=== PATIENT | male | born 1985 | race Caucasian/White ===

== ENCOUNTER 2021-08-10 12:48 | Emergency (ER) | payer MEDICAID ==
[~2021-08-10] VITALS: Ht 157.5 cm; Wt 49.9 kg
[2021-08-10 12:50] VITALS: BP_SYST 111
[2021-08-10] MEDS ORDERED: GASTROGRAFIN 120 ML GT ONE (13:30)
[2021-08-10] MEDS ORDERED: GASTROGRAFIN 120 ML ONE (13:34)
[2021-08-10 13:43] LABS: BASOPHILS # (AUTO) 0.1 K/uL (0.0-0.2); BASOPHILS % (AUTO) 0.8 % (0.0-2.0); EOSINOPHILS # (AUTO) 0.1 K/uL (0.0-0.4); EOSINOPHILS % (AUTO) 1.3 % (0.0-4.0); HEMATOCRIT 45.9 % (36-54); HEMOGLOBIN 15.4 g/dL (14.0-18.0); LYMPHOCYTES # (AUTO) 1.5 K/uL (1.0-5.5); MEAN CORPUSCULAR HEMOGLOBIN 30 pg (27-31); MEAN CORPUSCULAR HGB CONC 34 % (32-36); MEAN CORPUSCULAR VOLUME 91 fL (79.0-98.0); MONOCYTES # (AUTO) 0.6 K/uL (0.0-1.0); MONOCYTES % (AUTO) 8.4 % (1.7-9.3); NEUTROPHILS # (AUTO) 4.5 K/uL (1.8-7.7); NEUTROPHILS % (AUTO) 67.5 % (40.0-70.0); PLATELET COUNT (AUTO) 138 K/uL (130-430); RED BLOOD CELL COUNT(AUTO) 5.06 MIL/uL (4.2-6.2); WHITE BLOOD COUNT (AUTO) 6.7 K/uL (4.8-10.8)
[2021-08-10 13:58] LABS: CALCIUM 9.5 mg/dL (8.4-11.0); CREATININE 0.74 mg/dL (0.55-1.30); POTASSIUM 3.9 mmol/L (3.5-5.1)
[2021-08-10 14:12] LABS: ALBUMIN 3.7 g/dL (3.4-4.8); TOTAL BILIRUBIN 0.3 mg/dL (0.0-1.0)
[2021-08-10 14:16] LABS: PHENYTOIN (DILANTIN) 0.9 ug/mL (10.0-20.0)
[2021-08-10 14:31] LABS: CARBAMAZEPINE (TEGRETOL) < 0 ug/mL (4-12); VALPROIC ACID < 3 ug/mL (50-100)
[2021-08-10 15:30] VITALS: BP_SYST 110
== END 2021-08-10 19:00 | disposition home or self-care (01) ==
LOC: SED 12:48
DX: K94.23 Gastrostomy malfunction (principal); I10 Essential (primary) hypertension; K21.9 Gastro-esophageal reflux disease without esophagitis
CPT/HCPCS: 36415; 43762; 74240; 80053; 80156; 80164; 80185; 83690; 85025; 99284; Q9963

== ENCOUNTER 2023-12-08 22:47 | Inpatient (IN) | payer MEDICAID, OTHER ==
[~2023-12-08] VITALS: Ht 152.4 cm; Wt 45.4 kg
[2023-12-08 22:53] VITALS: BP_SYST 127; PULSE 130; RESP 25; TEMP 98.8; O2SAT 96
[2023-12-08 23:47] LABS: BASOPHILS % (AUTO) 0.4 % (0.0-2.0); EOSINOPHILS % (AUTO) 0.2 % (0.0-4.0); HEMATOCRIT 38.9 % (36-54); HEMOGLOBIN 13.5 g/dL (14.0-18.0); LYMPHOCYTES # (AUTO) 0.9 K/uL (1.0-5.5); LYMPHOCYTES % (AUTO) 13.5 % (20.5-51.5); MEAN CORPUSCULAR HEMOGLOBIN 30 pg (27-31); MEAN CORPUSCULAR HGB CONC 35 % (32-36); MEAN CORPUSCULAR VOLUME 87 fL (79.0-98.0); MONOCYTES # (AUTO) 0.7 K/uL (0.0-1.0); MONOCYTES % (AUTO) 10.5 % (1.7-9.3); NEUTROPHILS # (AUTO) 5.2 K/uL (1.8-7.7); NEUTROPHILS % (AUTO) 75.4 % (40.0-70.0); PLATELET COUNT (AUTO) 135 K/uL (130-430); RED BLOOD CELL COUNT(AUTO) 4.48 MIL/uL (4.2-6.2); RED CELL DISTRIBUTION WIDTH 15.1 % (9.0-15.0); WHITE BLOOD COUNT (AUTO) 6.9 K/uL (4.8-10.8)
[2023-12-09] VITALS (9 sets, daily range): BP systolic 108–153; PULSE 78–139; RESP 14–18; TEMP 97.1–99.6; O2SAT 94–98
[2023-12-09 00:03] LABS: ALANINE AMINOTRANSFERASE 27 U/L (12-78); ALBUMIN 3.7 g/dL (3.4-4.8); ANION GAP 9 (5-15); ASPARTATE AMINOTRANSFERASE 20 U/L (10-37); CALCIUM 9.1 mg/dL (8.4-11.0); CARBON DIOXIDE 28 mmol/L (23-29); CHLORIDE 106 mmol/L (98-107); CREATININE 0.95 mg/dL (0.55-1.30); GFR AFRICAN AMERICAN 114 mL/min (>90); GFR NON AFRICAN-AMERICAN 94 mL/min (>90); GLUCOSE 117 mg/dL (74-106); POTASSIUM 3.7 mmol/L (3.5-5.1); SODIUM SERUM 143 mmol/L (136-145); TOTAL BILIRUBIN 0.5 mg/dL (0.0-1.0); TOTAL PROTEIN, SERUM 7.9 g/dL (6.4-8.3); UREA NITROGEN, BLOOD 22 mg/dL (8-21)
[2023-12-09 00:05] LABS: BILIRUBIN,DIRECT 0.1 mg/dL (0.0-0.3)
[2023-12-09 00:15] LABS: INR 1.1 (0.80-1.20); PROTHROMBIN TIME 11.3 SECS (9.5-12.5)
[2023-12-09] MEDS ORDERED: VANCOMYCIN HCL 1000 MG/VIAL IV ONE (00:46)
[2023-12-09] MEDS ORDERED: CEFEPIME 1 GM/VIAL (MAXIPIME) ONE (00:47)
[2023-12-09] MEDS: CEFEPIME 1 GM in D5W 50 ML IV ONE (00:51)
[2023-12-09] MEDS ORDERED: AMIT25TA9 PO (01:18)
[2023-12-09] MEDS ORDERED: ALBU2.5V7 HHN (01:18)
[2023-12-09] MEDS ORDERED: METO5SOL22 PO (01:18)
[2023-12-09] MEDS ORDERED: OMEP20CA15 PO (01:18)
[2023-12-09] MEDS ORDERED: BACL20TA PO (01:18)
[2023-12-09] MEDS: NACL 0.9% 2,000 ML IV ONE (01:36)
[2023-12-09] MEDS: VANCOMYCIN HCL 1,000 MG in NS 250 ML IV ONE (01:36)
[2023-12-09 02:38] LABS: CLARITY/URINE CLOUDY (CLEAR); COLOR,URINE YELLOW (YELLOW); PH,URINE 8.5 (5.0-8.0)
[2023-12-09 02:39] LABS: BILIRUBIN,URINE NEGATIVE (NEGATIVE); BLOOD, URINE NEGATIVE (NEGATIVE); GLUCOSE,URINE NEGATIVE (NEGATIVE); KETONES,URINE 1+ (NEGATIVE); LEUKOCYTE ESTERASE ,URINE NEGATIVE (NEGATIVE); NITRITE, URINE NEGATIVE (NEGATIVE); PROTEIN URINE 1+ (NEGATIVE); UROBILINOGEN,URINE 0.2 (0.2-1.0)
[2023-12-09 02:40] LABS: BACTERIA,URINE None Seen /HPF (None Seen); RBC,URINE 0-3 /HPF (0-3); WBC,URINE 0-3 /HPF (0-3)
[2023-12-09 02:45] LABS: URINE AMORPHOUS PHOSPHATES 3+ /HPF (None Seen)
[2023-12-09] MEDS: ACETAMINOPHEN 650 MG/20.3 ML UDC PO ONE (04:02)
[2023-12-09] MEDS: ONDANSETRON HCL 4 MG/2 ML VIAL IVP ONE (04:54)
[2023-12-09] MEDS ORDERED: ACETAMINOPHEN 500 MG TABLET GT PRN (07:00)
[2023-12-09] MEDS ORDERED: NACL 0.9% 1,000 ML IV ONE (07:00)
[2023-12-09] MEDS ORDERED: OMEPRAZOLE Non-Formulary 20 MG CAPSULE.DR PO SCH (11:00)
[2023-12-09] MEDS ORDERED: LR 1,000 ML IV SCH (11:00)
[2023-12-09] MEDS ORDERED: METOCLOPRAMIDE HCL 10 MG/10 ML UDC GT PRN (11:00)
[2023-12-09] MEDS: ONDANSETRON HCL 4 MG/2 ML VIAL IVP PRN (11:32)
[2023-12-09] MEDS: ALBUTEROL SULFATE 0.083% 2.5 MG/3 ML VIAL.NEB INH ONE (11:49)
[2023-12-09] MEDS: D5LR 1,000 ML IV SCH (13:15)
[2023-12-09] MEDS: BACLOFEN 10 MG TABLET PO ONE (13:15)
[2023-12-09] MEDS: PANTOPRAZOLE SODIUM 40 MG/VIAL (PROTONIX) IVP ONE (13:27)
[2023-12-09] MEDS ORDERED: metroNIDAZOLE 500 mg/NS 100 ML IV SCH (14:00)
[2023-12-09] MEDS: metroNIDAZOLE 500 MG TABLET GT SCH (14:34)
[2023-12-09] MEDS: ALBUTEROL SULFATE 0.083% 2.5 MG/3 ML VIAL.NEB INH SCH (15:41)
[2023-12-09] MEDS: AMITRIPTYLINE HCL 25 MG TABLET (ELAVIL) GT SCH (17:12)
[2023-12-09] MEDS: BACLOFEN 10 MG TABLET PO SCH (17:12)
[2023-12-09] MEDS: PANTOPRAZOLE SODIUM 40 MG/VIAL (PROTONIX) IVP SCH (22:44)
[2023-12-09] MEDS: CEFEPIME 1 GM in D5W 50 ML IV SCH (22:45)
[2023-12-10] VITALS (10 sets, daily range): BP systolic 97–132; PULSE 68–100; RESP 16–18; TEMP 97–98.1; O2SAT 95–100
[2023-12-10 06:38] LABS: BASOPHILS % (AUTO) 0.3 % (0.0-2.0); EOSINOPHILS % (AUTO) 0.6 % (0.0-4.0); HEMATOCRIT 34.5 % (36-54); HEMOGLOBIN 11.6 g/dL (14.0-18.0); LYMPHOCYTES % (AUTO) 15.1 % (20.5-51.5); MEAN CORPUSCULAR HEMOGLOBIN 30 pg (27-31); MEAN CORPUSCULAR HGB CONC 34 % (32-36); MEAN CORPUSCULAR VOLUME 88 fL (79.0-98.0); MONOCYTES # (AUTO) 0.6 K/uL (0.0-1.0); MONOCYTES % (AUTO) 9.6 % (1.7-9.3); NEUTROPHILS % (AUTO) 74.4 % (40.0-70.0); PLATELET COUNT (AUTO) 111 K/uL (130-430); RED BLOOD CELL COUNT(AUTO) 3.91 MIL/uL (4.2-6.2); WHITE BLOOD COUNT (AUTO) 6.7 K/uL (4.8-10.8)
[2023-12-10 07:59] LABS: ALBUMIN 2.7 g/dL (3.4-4.8); CALCIUM 8.5 mg/dL (8.4-11.0); CREATININE 0.6 mg/dL (0.55-1.30); FREE T4 (FREE THYROXINE) 1.3 ng/dl (0.8-1.5); POTASSIUM 3.7 mmol/L (3.5-5.1); THYROID STIMULATING HORMONE 1.06 uIu/mL (0.36-3.74); TOTAL BILIRUBIN 0.3 mg/dL (0.0-1.0); TOTAL PROTEIN, SERUM 6.3 g/dL (6.4-8.3)
[2023-12-10] MEDS: MINERAL OIL 133 ML ENEMA RC ONE (15:23)
[2023-12-11] VITALS (10 sets, daily range): BP systolic 102–130; PULSE 77–110; RESP 16–17; TEMP 97.4–99.2; O2SAT 94–100
[2023-12-11 06:18] LABS: INR 1.1 (0.80-1.20); PROTHROMBIN TIME 11.5 SECS (9.5-12.5)
[2023-12-11 06:40] LABS: BASOPHILS % (AUTO) 0.3 % (0.0-2.0); EOSINOPHILS # (AUTO) 0.1 K/uL (0.0-0.4); EOSINOPHILS % (AUTO) 1.8 % (0.0-4.0); HEMATOCRIT 34.4 % (36-54); HEMOGLOBIN 11.4 g/dL (14.0-18.0); LYMPHOCYTES # (AUTO) 1.2 K/uL (1.0-5.5); MEAN CORPUSCULAR HEMOGLOBIN 29 pg (27-31); MEAN CORPUSCULAR HGB CONC 33 % (32-36); MEAN CORPUSCULAR VOLUME 88 fL (79.0-98.0); MONOCYTES # (AUTO) 0.4 K/uL (0.0-1.0); MONOCYTES % (AUTO) 12.6 % (1.7-9.3); NEUTROPHILS # (AUTO) 1.4 K/uL (1.8-7.7); NEUTROPHILS % (AUTO) 47.3 % (40.0-70.0); PLATELET COUNT (AUTO) 113 K/uL (130-430); RED BLOOD CELL COUNT(AUTO) 3.89 MIL/uL (4.2-6.2); RED CELL DISTRIBUTION WIDTH 14.8 % (9.0-15.0); WHITE BLOOD COUNT (AUTO) 3.1 K/uL (4.8-10.8)
[2023-12-11 06:51] LABS: ALBUMIN 2.8 g/dL (3.4-4.8); CALCIUM 8.4 mg/dL (8.4-11.0); CREATININE 0.61 mg/dL (0.55-1.30); POTASSIUM 3.7 mmol/L (3.5-5.1); TOTAL BILIRUBIN 0.4 mg/dL (0.0-1.0); TOTAL PROTEIN, SERUM 6.1 g/dL (6.4-8.3)
[2023-12-11] MEDS: MEPERIDINE 100 MG INJ. 100 MG/ML VIAL ONE (07:59)
[2023-12-11] MEDS: MIDAZOLAM HCL 5 MG/5 ML VIAL ONE (07:59)
[2023-12-12] VITALS (11 sets, daily range): BP systolic 94–144; PULSE 82–106; RESP 16–18; TEMP 97.7–99; O2SAT 94–98
[2023-12-12 06:21] LABS: BASOPHILS % (AUTO) 0.7 % (0.0-2.0); EOSINOPHILS % (AUTO) 1.4 % (0.0-4.0); HEMATOCRIT 34.3 % (36-54); HEMOGLOBIN 11.4 g/dL (14.0-18.0); LYMPHOCYTES # (AUTO) 1.1 K/uL (1.0-5.5); LYMPHOCYTES % (AUTO) 35.6 % (20.5-51.5); MEAN CORPUSCULAR HEMOGLOBIN 29 pg (27-31); MEAN CORPUSCULAR HGB CONC 33 % (32-36); MEAN CORPUSCULAR VOLUME 88 fL (79.0-98.0); MONOCYTES # (AUTO) 0.4 K/uL (0.0-1.0); MONOCYTES % (AUTO) 13.7 % (1.7-9.3); NEUTROPHILS # (AUTO) 1.5 K/uL (1.8-7.7); NEUTROPHILS % (AUTO) 48.6 % (40.0-70.0); PLATELET COUNT (AUTO) 121 K/uL (130-430); RED BLOOD CELL COUNT(AUTO) 3.89 MIL/uL (4.2-6.2); WHITE BLOOD COUNT (AUTO) 3.2 K/uL (4.8-10.8)
[2023-12-12 06:39] LABS: ALBUMIN 2.7 g/dL (3.4-4.8); CALCIUM 8.5 mg/dL (8.4-11.0); CREATININE 0.64 mg/dL (0.55-1.30); POTASSIUM 3.9 mmol/L (3.5-5.1); TOTAL BILIRUBIN 0.3 mg/dL (0.0-1.0); TOTAL PROTEIN, SERUM 6.2 g/dL (6.4-8.3)
[2023-12-12 08:43] LABS: BASOPHILS % (AUTO) 0.6 % (0.0-2.0); EOSINOPHILS % (AUTO) 0.6 % (0.0-4.0); HEMATOCRIT 34.3 % (36-54); HEMOGLOBIN 11.5 g/dL (14.0-18.0); LYMPHOCYTES # (AUTO) 0.8 K/uL (1.0-5.5); LYMPHOCYTES % (AUTO) 29.5 % (20.5-51.5); MEAN CORPUSCULAR HEMOGLOBIN 29 pg (27-31); MEAN CORPUSCULAR HGB CONC 34 % (32-36); MEAN CORPUSCULAR VOLUME 88 fL (79.0-98.0); MONOCYTES # (AUTO) 0.3 K/uL (0.0-1.0); MONOCYTES % (AUTO) 10.9 % (1.7-9.3); NEUTROPHILS # (AUTO) 1.7 K/uL (1.8-7.7); NEUTROPHILS % (AUTO) 58.4 % (40.0-70.0); PLATELET COUNT (AUTO) 116 K/uL (130-430); RED BLOOD CELL COUNT(AUTO) 3.92 MIL/uL (4.2-6.2); RED CELL DISTRIBUTION WIDTH 14.7 % (9.0-15.0); WHITE BLOOD COUNT (AUTO) 2.8 K/uL (4.8-10.8)
[2023-12-12] MEDS: METOCLOPRAMIDE HCL 10 MG/2 ML VIAL ONE (13:56)
[2023-12-12] MEDS: METOCLOPRAMIDE HCL 10 MG/2 ML VIAL IVP ONE (14:00)
[2023-12-12] MEDS: MIDAZOLAM HCL 5 MG/5 ML VIAL ONE (14:11)
[2023-12-12] MEDS: MEPERIDINE 100 MG INJ. 100 MG/ML VIAL ONE (14:11)
[2023-12-12] MEDS ORDERED: PANTOPRAZOLE GRANULES PACKET 40 MG GT SCH (21:00)
[2023-12-13] VITALS (9 sets, daily range): BP systolic 118–140; PULSE 81–109; RESP 11–18; TEMP 97.4–98; O2SAT 93–99
[2023-12-13] MEDS: PANTOPRAZOLE SODIUM 40 MG/VIAL (PROTONIX) IVP ONE (00:51)
[2023-12-13] MEDS: SUCRALFATE 1 GM/10 ML UDC GT SCH (06:36)
[2023-12-13] MEDS: PANTOPRAZOLE SODIUM 40 MG/VIAL (PROTONIX) IVP SCH (11:07)
[2023-12-13] MEDS ORDERED: SUCR1ORA4 GT (16:51)
[2023-12-13] MEDS ORDERED: FAMO20TA8 GT (16:51)
[2023-12-13] MEDS ORDERED: DOXY100C5 GT (16:52)
[2023-12-13] MEDS: FAMOTIDINE 20 MG TABLET GT SCH (22:54)
[2023-12-13] MEDS: DOXYCYCLINE HYCLATE 100 MG TABLET GT SCH (22:54)
[2023-12-13] MEDS: NS 500 ML IV ONE (23:06)
[2023-12-13] MEDS ORDERED: ONDANSETRON HCL 4 MG/2 ML VIAL IVP PRN (23:15)
[2023-12-14] VITALS (8 sets, daily range): BP systolic 105–137; PULSE 90–114; RESP 12–18; TEMP 97.4–98.2; O2SAT 94–100
[2023-12-14 08:16] LABS: BASOPHILS % (AUTO) 0.5 % (0.0-2.0); HEMATOCRIT 35.4 % (36-54); HEMOGLOBIN 11.7 g/dL (14.0-18.0); LYMPHOCYTES # (AUTO) 1.8 K/uL (1.0-5.5); LYMPHOCYTES % (AUTO) 38.1 % (20.5-51.5); MEAN CORPUSCULAR HEMOGLOBIN 29 pg (27-31); MEAN CORPUSCULAR HGB CONC 33 % (32-36); MEAN CORPUSCULAR VOLUME 89 fL (79.0-98.0); MONOCYTES # (AUTO) 0.5 K/uL (0.0-1.0); MONOCYTES % (AUTO) 11.4 % (1.7-9.3); NEUTROPHILS # (AUTO) 2.3 K/uL (1.8-7.7); RED CELL DISTRIBUTION WIDTH 14.8 % (9.0-15.0); WHITE BLOOD COUNT (AUTO) 4.8 K/uL (4.8-10.8)
[2023-12-14 09:14] LABS: PLATELET COUNT (AUTO) 156 K/uL (130-430)
[2023-12-14 09:15] LABS: ALBUMIN 3.1 g/dL (3.4-4.8); CALCIUM 8.6 mg/dL (8.4-11.0); CREATININE 0.69 mg/dL (0.55-1.30); POTASSIUM 3.7 mmol/L (3.5-5.1); TOTAL BILIRUBIN 0.3 mg/dL (0.0-1.0); TOTAL PROTEIN, SERUM 6.8 g/dL (6.4-8.3)
[2023-12-14] MEDS: LORazepam 2 MG/ML VIAL IVP ONE (09:47)
[2023-12-14] MEDS: CHOLECALCIFEROL (VITAMIN D3) 2,000 UNIT TABLET GT SCH (10:11)
[2023-12-14] MEDS: METOPROLOL TARTRATE 25 MG TABLET GT ONE (16:01)
[2023-12-14] MEDS: METOPROLOL TARTRATE 25 MG TABLET GT SCH (20:43)
[2023-12-15] VITALS (11 sets, daily range): BP systolic 102–135; PULSE 82–120; RESP 18; TEMP 97.4–99.1; O2SAT 96–100
[2023-12-15] MEDS ORDERED: METO25TA6 GT (10:34)
[2023-12-15] MEDS ORDERED: VIS10 GT (10:34)
[2023-12-16] VITALS (7 sets, daily range): BP systolic 108–130; PULSE 77–96; RESP 16–20; TEMP 97.6–98.8; O2SAT 96–99
[2023-12-16] MEDS ORDERED: ALBUTEROL SULFATE 0.083% 2.5 MG/3 ML VIAL.NEB INH ONE (19:36)
== END 2023-12-16 17:45 | disposition home or self-care (01) | DRG 720 ==
LOC: SED 22:47 → STU 12-09 04:48 → SMU 12-12 05:06 → STU 12-13 22:47
PROVIDERS: ADMIT Internal Medicine; ATTEND Internal Medicine
PROC: 0DB78ZX Excision of Stomach, Pylorus, Via Natural or Artificial Opening Endoscopic, Diagnostic (ICD-10-PCS; 2023-12-12)
PROC: 0DB58ZX Excision of Esophagus, Via Natural or Artificial Opening Endoscopic, Diagnostic (ICD-10-PCS; principal; 2023-12-12 14:30)
DX: A41.9 Sepsis, unspecified organism (principal); J69.0 Pneumonitis due to inhalation of food and vomit; K22.11 Ulcer of esophagus with bleeding; E44.1 Mild protein-calorie malnutrition; K21.01 Gastro-esophageal reflux disease with esophagitis, with bleeding; Z20.822 Contact with and (suspected) exposure to COVID-19; K25.4 Chronic or unspecified gastric ulcer with hemorrhage; K44.9 Diaphragmatic hernia without obstruction or gangrene; G80.9 Cerebral palsy, unspecified; I10 Essential (primary) hypertension; K29.71 Gastritis, unspecified, with bleeding; Z74.01 Bed confinement status; Z68.1 Body mass index [BMI] 19.9 or less, adult; Z79.899 Other long term (current) drug therapy; Z79.51 Long term (current) use of inhaled steroids; Z93.1 Gastrostomy status; F79 Unspecified intellectual disabilities
CPT/HCPCS: 36415; 43239; 71045; 80048; 80053; 80076; 81000; 81001; 81015; 83605; 83690; 84439; 84443; 84484; 85025; 85610; 85730; 86886; 86900; 86901; 87040; 87081; 87086; 88305; 88312; 88313; 93005; 93306; 94070; 94640; 94760; 96365; 96375; 97112-GP; 97530-GP; 99291; G0378; J0692; J2060; J2175; J2250; J2405; J2470; J2765; J3370; J7060

== ENCOUNTER 2023-12-17 08:24 | Emergency (ER) | payer OTHER ==
[~2023-12-17] VITALS: Ht 152.4 cm; Wt 41.3 kg
[~2023-12-17 08:24] MED LIST: ALBU2.5V7 HHN; AMIT25TA9 PO; BACL20TA PO; DOXY100C5 GT; FAMO20TA8 GT; METO25TA6 GT; METO5SOL22 PO; OMEP20CA15 PO; SUCR1ORA4 GT; VIS10 GT
[2023-12-17 08:46] VITALS: BP_SYST 121; PULSE 64; RESP 20; TEMP 97.8; O2SAT 93
[2023-12-17 09:27] VITALS: BP_SYST 121; PULSE 64; RESP 20; TEMP 97.8; O2SAT 93
== END 2023-12-17 09:29 | disposition home or self-care (01) ==
LOC: SED 08:24
DX: K94.23 Gastrostomy malfunction (principal); K21.9 Gastro-esophageal reflux disease without esophagitis; I10 Essential (primary) hypertension; Z79.899 Other long term (current) drug therapy
CPT/HCPCS: 99281